=== PATIENT | female | born 1960 | race Caucasian/White ===

== ENCOUNTER → 2020-10-27 | Outpatient (CLI) | payer OTHER | LOC: RAD 12:50 | DX: M54.2 Cervicalgia (principal); M25.512 Pain in left shoulder; M47.812 Spondylosis without myelopathy or radiculopathy, cervical region; M40.50 Lordosis, unspecified, site unspecified | CPT/HCPCS: 72050; 73030 ==

== ENCOUNTER 2021-08-19 10:35 | Emergency (ER) | payer MEDICARE ==
[2021-08-19 12:20] LABS: HEMOGLOBIN 15.6 gm/dl (12.3-15.3); RED BLOOD COUNT 4.83 M/UL (4.00-5.10); WHITE BLOOD COUNT 11.7 K/UL (4.5-11.0)
[2021-08-19 12:57] LABS: BUN/CREATININE RATIO 23 (0-10)
[2021-08-19] MEDS ORDERED: ZOFRAN4 MG PO (15:37)
[2021-08-19] MEDS ORDERED: AUGMENTIN 875-1 EACH PO (15:37)
== END 2021-08-19 15:50 | disposition home or self-care (01) ==
LOC: ER1 10:35
PROVIDERS: Physician Assistant Medical
DX: K52.9 Noninfective gastroenteritis and colitis, unspecified (principal); I10 Essential (primary) hypertension; J45.909 Unspecified asthma, uncomplicated
CPT/HCPCS: 80053; 81001; 82270; 83605; 83690; 85025; 85610; 85652; 86140; 96374; 96375; 99284; J2270; J2405; Q9967

== ENCOUNTER → 2021-12-10 | Outpatient (CLI) | payer MEDICARE ==
[~2021-12-10] MED LIST: AUGMENTIN 875-1 EACH PO; ZOFRAN4 MG PO
== END ==
LOC: MAMO 14:30
DX: Z12.31 Encounter for screening mammogram for malignant neoplasm of breast (principal)
CPT/HCPCS: 77063; 77067

== ENCOUNTER → 2021-12-17 | Day surgery (SDC) | payer MEDICARE ==
[~2021-12-17] MED LIST changes: +BENADRYL25 MG PO; +HAIR, SKIN & N1 EACH PO; +LEXAPRO TAB 1010 MG PO; +PROBIOTIC PLUS1 EACH PO; +TRIAMTERENE-HC1 EAC1 PO; +VITAMIN D3125 MCG PO
== END | disposition home or self-care (01) ==
LOC: OR 07:08
DX: Z12.11 Encounter for screening for malignant neoplasm of colon (principal); I10 Essential (primary) hypertension; E78.5 Hyperlipidemia, unspecified; M19.90 Unspecified osteoarthritis, unspecified site; F32.A Depression, unspecified; Z80.0 Family history of malignant neoplasm of digestive organs; Z87.19 Personal history of other diseases of the digestive system; Z79.899 Other long term (current) drug therapy
CPT/HCPCS: J2704; J7030

== ENCOUNTER → 2022-03-29 | Outpatient (CLI) | payer MEDICARE | LOC: ECHO 13:15 → EXRD 13:24 → ECHO 03-31 10:00 | DX: R01.1 Cardiac murmur, unspecified (principal); Z78.0 Asymptomatic menopausal state; M85.832 Other specified disorders of bone density and structure, left forearm | CPT/HCPCS: ECHO; 77080; 93306 ==

== ENCOUNTER → 2022-05-10 | Outpatient (CLI) | payer MEDICARE | LOC: RAD 17:24 | DX: M25.551 Pain in right hip (principal) | CPT/HCPCS: 72110; 73502 ==

== ENCOUNTER → 2022-06-16 | Outpatient (CLI) | payer MEDICARE | LOC: RAD 16:08 | DX: M25.561 Pain in right knee (principal) | CPT/HCPCS: 73562 ==

== ENCOUNTER → 2022-07-08 | Outpatient (CLI) | payer MEDICARE | LOC: KOH-I 12:45 | DX: M96.1 Postlaminectomy syndrome, not elsewhere classified (principal) | CPT/HCPCS: 72100 ==